=== PATIENT | female | born 1935 | race Caucasian/White ===

== ENCOUNTER 2019-03-19 18:10 | Observation (INO) ==
[2019-03-19] MEDS ORDERED: 0.9 % Sodium Chloride 500 ML IVC ONE (18:12)
[2019-03-19] MEDS ORDERED: Ondansetron 4 MG/2 ML VIAL IVP ONE (18:12)
[2019-03-19] MEDS ORDERED: Aspirin 81 MG TAB.CHEW PO ONE (18:12)
[2019-03-19 18:50] LABS: Hematocrit 46.4 % (35.3-44.9); Hemoglobin 16.2 g/dL (11.5-15.4); Mean Corpuscular HGB Conc 34.9 g/dL (31.6-35.5); Mean Corpuscular Hemoglobin 31.5 pg (28.0-33.3); Mean Corpuscular Volume 90.3 fL (83.0-100.0); Mean Platelet Volume 10.5 fL (9.4-12.4); Platelet Count 241 K/mcL (140-400); Red Blood Count 5.14 M/mcL (3.82-4.97); Red Cell Distribution Width 12.3 % (11.5-14.5); Segmented Neutrophils % 75.1 %; White Blood Count 8.3 K/mcL (4.3-11.1)
[2019-03-19 18:51] LABS: Basophils % 0.5 %; Eosinophils # 0.1 K/mcL (0.0-0.6); Eosinophils % 0.7 %; Immature Granulocytes % 1.2 % (0-4); Lymphocytes # 1.2 K/mcL (0.6-4.6); Monocytes # 0.7 K/mcL (0.0-1.3); Monocytes % 8.5 %; Neutrophils # 6.2 K/mcL (1.6-8.9)
[2019-03-19 18:59] LABS: Prothrombin Time 10.9 Seconds (9.4-12.1)
[2019-03-19 19:31] LABS: BUN/Creatinine Ratio 16 (6-26); Blood Urea Nitrogen 15 mg/dL (8-23); Calcium 9.9 mg/dL (8.6-10.3); Carbon Dioxide 24 mEq/L (23-29); Chloride 104 mEq/L (98-107); Glucose 158 mg/dL (70-105); Osmolality,Calculated 290 (280-300); Potassium 3.9 mEq/L (3.5-5.1); Sodium 138 mEq/L (136-145); Troponin I < 0.03 ng/mL (< 0.04); eGFR For African Americans > 60 (> 60); eGFR For Non-African Americans 56 (> 60)
[2019-03-19] MEDS ORDERED: *HR* Metoprolol 5 MG/5 ML VIAL IVP ONE (19:42)
[2019-03-20] MEDS ORDERED: Naloxone 0.4 MG/ML INJ IVP PRN (02:01)
[2019-03-20] MEDS ORDERED: Ondansetron 4 MG/2 ML VIAL IVP PRN (02:01)
[2019-03-20] MEDS ORDERED: Acetaminophen 325 MG TABLET PO PRN (02:01)
[2019-03-20] MEDS ORDERED: traMADol 50 MG TABLET PO PRN (02:01)
[2019-03-20] MEDS ORDERED: *HR* OxyCODONE Immed Rel 5 MG TABLET PO PRN (02:01)
[2019-03-20] MEDS ORDERED: Aspirin Enteric Coated 325 MG Tablet PO ONE (04:30)
[2019-03-20] MEDS ORDERED: Nitroglycerin 0.4 MG TAB.SUBL SL PRN (04:31)
[2019-03-20] MEDS ORDERED: Regadenoson 0.4 MG/5 ML SYRINGE IVP ONE (06:18)
[2019-03-20] MEDS: *HR* Heparin 5,000 UNIT/ML VIAL SQ SCH ×3 (06:35→20:03)
[2019-03-20 09:40] LABS: Hematocrit 43.5 % (35.3-44.9); Mean Corpuscular HGB Conc 33.3 g/dL (31.6-35.5); Mean Corpuscular Hemoglobin 31.3 pg (28.0-33.3); Mean Corpuscular Volume 93.8 fL (83.0-100.0); Mean Platelet Volume 10.4 fL (9.4-12.4); Platelet Count 220 K/mcL (140-400); Red Blood Count 4.64 M/mcL (3.82-4.97); Red Cell Distribution Width 12.2 % (11.5-14.5); White Blood Count 7.2 K/mcL (4.3-11.1)
[2019-03-20 09:42] LABS: Hemoglobin 14.5 g/dL (11.5-15.4)
[2019-03-20 11:17] LABS: BUN/Creatinine Ratio 14 (6-26); Blood Urea Nitrogen 14 mg/dL (8-23); Calcium 9.4 mg/dL (8.6-10.3); Carbon Dioxide 21 mEq/L (23-29); Chloride 108 mEq/L (98-107); Chol/HDL Ratio 7.3 (0-4.9); Cholesterol 241 mg/dL (< 200); Glucose 169 mg/dL (70-105); HDL Cholesterol 33 mg/dL (40-59); LDL Cholesterol,Calculated 165 mg/dL (0-99); Magnesium 1.9 mg/dL (1.6-2.6); Osmolality,Calculated 290 (280-300); Potassium 3.7 mEq/L (3.5-5.1); Sodium 138 mEq/L (136-145); Triglycerides 217 mg/dL (< 150); eGFR For African Americans > 60 (> 60); eGFR For Non-African Americans 53 (> 60)
[2019-03-20] MEDS ORDERED: amLODIPine 5 MG TABLET PO ONE (11:30)
[2019-03-20 11:34] LABS: Estimated Average Glucose 154 mg/dl
[2019-03-20] MEDS: ALPRAZolam 1 MG TABLET PO SCH ×2 (15:00→20:03)
[2019-03-21] MEDS: *HR* Heparin 5,000 UNIT/ML VIAL SQ SCH (05:25)
[2019-03-21 05:39] LABS: Hematocrit 43.9 % (35.3-44.9); Hemoglobin 15.2 g/dL (11.5-15.4); Mean Corpuscular HGB Conc 34.6 g/dL (31.6-35.5); Mean Corpuscular Hemoglobin 31.5 pg (28.0-33.3); Mean Corpuscular Volume 90.9 fL (83.0-100.0); Mean Platelet Volume 10.7 fL (9.4-12.4); Platelet Count 241 K/mcL (140-400); Red Blood Count 4.83 M/mcL (3.82-4.97); Red Cell Distribution Width 12.5 % (11.5-14.5)
[2019-03-21 06:02] LABS: Calcium 9.9 mg/dL (8.6-10.3); Potassium 3.6 mEq/L (3.5-5.1)
[2019-03-21 07:17] LABS: Adenovirus Not Detected (Not Detect); Bordetella Pertussis Not Detected (Not Detect); Chlamydophila pneumoniae Not Detected (Not Detect); Coronavirus 229E Not Detected (Not Detect); Coronavirus HKU1 Not Detected (Not Detect); Coronavirus NL63 Not Detected (Not Detect); Coronavirus OC43 Not Detected (Not Detect); Human Metapneumovirus Not Detected (Not Detect); Human Rhinovirus/Enterovirus Not Detected (Not Detect); Influenza A Subtype 2009 H1 Not Detected (Not Detect); Influenza A Untypeable Not Detected (Not Detect); Influenza B Not Detected (Not Detect); Mycoplasma pneumoniae Not Detected (Not Detect); Parainfluenza Virus 1 Not Detected (Not Detect); Parainfluenza Virus 2 Not Detected (Not Detect); Parainfluenza Virus 3 Not Detected (Not Detect); Parainfluenza Virus 4 Not Detected (Not Detect); Respiratory Syncytial Virus Not Detected (Not Detect)
[2019-03-21] MEDS ORDERED: ARIPiprazole 5 MG TABLET PO SCH (09:00)
[2019-03-21] MEDS ORDERED: Aspirin Enteric Coated 81 MG Tablet PO SCH (09:00)
[2019-03-21] MEDS: ALPRAZolam 1 MG TABLET PO SCH (09:05)
[2019-03-21] MEDS ORDERED: amLODIPine 5 MG TABLET PO ONE (09:31)
[2019-03-21] MEDS ORDERED: amLODIPine 5 MG TABLET PO SCH (09:35)
[2019-03-21 11:56] VITALS: BP 124/74
[2019-03-22] MEDS ORDERED: amLODIPine 5 MG TABLET PO SCH (09:00)
== END 2019-03-21 14:58 | disposition home or self-care (01) ==
LOC: EMEROOARM 18:10 → 3BNU 18:10 → SUATTDRO 20:34 → 3BNU 21:15
PROVIDERS: ADMIT Internal Medicine; ATTEND Internal Medicine

== ENCOUNTER 2019-08-11 13:28 | Observation (INO) ==
[2019-08-11] MEDS ORDERED: 0.9 % Sodium Chloride 500 ML IVC STA (13:57)
[2019-08-11] MEDS ORDERED: *HR* HYDROmorphone (PF) 1 MG/ML SYRINGE IVP ONE ×2 (13:57→16:42)
[2019-08-11] MEDS ORDERED: Ondansetron 4 MG/2 ML VIAL IVP STA (13:58)
[2019-08-11 14:10] LABS: Hematocrit 48.8 % (35.3-44.9); Hemoglobin 16.3 g/dL (11.5-15.4); Mean Corpuscular HGB Conc 33.4 g/dL (31.6-35.5); Mean Corpuscular Hemoglobin 30.6 pg (28.0-33.3); Mean Corpuscular Volume 91.6 fL (83.0-100.0); Mean Platelet Volume 10.3 fL (9.4-12.4); Platelet Count 262 K/mcL (140-400); Red Blood Count 5.33 M/mcL (3.82-4.97); Red Cell Distribution Width 12.8 % (11.5-14.5); White Blood Count 8.1 K/mcL (4.3-11.1)
[2019-08-11 14:27] LABS: Prothrombin Time 10.8 Seconds (9.4-12.1)
[2019-08-11 14:29] LABS: Albumin/Globulin Ratio 1.7 (1.1-2.2); Bilirubin,Total 0.5 mg/dL (0.3-1.0); Calcium 10.4 mg/dL (8.6-10.3)
[2019-08-11 14:30] LABS: Activated Partial Thrombo Time 32.9 Seconds (26.0-36.0)
[2019-08-11 15:30] LABS: Bilirubin,Urine Negative (Negative); Blood,Urine Negative (Negative); Clarity,Urine Clear (Clear); Color,Urine Yellow (Yellow); Glucose,Urine (UA) Normal (Normal); Ketones,Urine Negative (Negative); Leukocyte Esterase,Urine Trace (Negative); Nitrite,Urine Negative (Negative); Protein,Urine Negative (Neg-Trace); Specific Gravity,Urine 1.012 (1.010-1.025); Urobilinogen,Urine Normal (Normal)
[2019-08-11 15:32] LABS: Bacteria,Urine None Seen per hpf (None-Few); Hyaline Casts,Urine None Seen per lpf (None-Few); RBC,Urine 0-3 per hpf (0-3); Squamous Epithelial Cell,Urine Few per lpf (None-Few); WBC,Urine 0-3 per hpf (0-3)
[2019-08-11] MEDS ORDERED: Ondansetron 4 MG/2 ML VIAL IVP PRN (17:34)
[2019-08-11] MEDS ORDERED: *HR* Promethazine 25 MG/ML VIAL IVP PRN (17:34)
[2019-08-11] MEDS ORDERED: Naloxone 0.4 MG/ML INJ IVP PRN (17:34)
[2019-08-11] MEDS ORDERED: Dextrose Gel 15 GM/37.5 ML TUBE PO PRN ×2 (17:53)
[2019-08-11] MEDS ORDERED: *HR* Dextrose 50 % in Water (Syg) 50 ML SYRINGE IVP PRN (17:53)
[2019-08-11] MEDS ORDERED: D5% in Water 1,000 ML IVC PRN (17:53)
[2019-08-11] MEDS: 0.9 % Sodium Chloride 1,000 ML IVC SCH (20:13)
[2019-08-11] MEDS ORDERED: Insulin LISPRO 300 UNITS/3 ML VIAL SQ SCH (21:00)
[2019-08-12] MEDS: Ketorolac 15 MG/ML VIAL IVP PRN ×2 (00:18→07:51)
[2019-08-12 04:14] LABS: Prothrombin Time 11.9 Seconds (9.4-12.1)
[2019-08-12 04:15] LABS: Hematocrit 43.8 % (35.3-44.9); Mean Corpuscular HGB Conc 32.6 g/dL (31.6-35.5); Mean Corpuscular Hemoglobin 29.9 pg (28.0-33.3); Mean Corpuscular Volume 91.6 fL (83.0-100.0); Mean Platelet Volume 10.3 fL (9.4-12.4); Platelet Count 252 K/mcL (140-400); Red Blood Count 4.78 M/mcL (3.82-4.97); Red Cell Distribution Width 12.8 % (11.5-14.5); White Blood Count 8.9 K/mcL (4.3-11.1)
[2019-08-12 04:16] LABS: Activated Partial Thrombo Time 33.2 Seconds (26.0-36.0); Hemoglobin 14.3 g/dL (11.5-15.4)
[2019-08-12 04:24] LABS: BUN/Creatinine Ratio 11 (6-26); Blood Urea Nitrogen 11 mg/dL (8-23); Calcium 9.7 mg/dL (8.6-10.3); Carbon Dioxide 27 mEq/L (23-29); Chloride 108 mEq/L (98-107); Glucose 101 mg/dL (70-105); Osmolality,Calculated 290 (280-300); Potassium 4.1 mEq/L (3.5-5.1); Sodium 140 mEq/L (136-145); eGFR For African Americans > 60 (> 60); eGFR For Non-African Americans 52 (> 60)
[2019-08-12] MEDS: 0.9 % Sodium Chloride 1,000 ML IVC SCH (07:49)
[2019-08-12] MEDS: Insulin LISPRO 300 UNITS/3 ML VIAL SQ SCH ×2 (07:52→11:26)
[2019-08-12] MEDS ORDERED: lisinopriL 10 MG TABLET PO SCH (09:00)
[2019-08-12] MEDS ORDERED: *HR* Propofol 200 MG/20 ML VIAL IVP ONE (10:55)
[2019-08-12] MEDS ORDERED: *HR* FentaNYL (PF) 100 MCG/2 ML VIAL ONE (10:55)
[2019-08-12] MEDS ORDERED: Ondansetron 4 MG/2 ML VIAL ONE (10:56)
[2019-08-12] MEDS ORDERED: Lidocaine -MPF 2% 2 ML VIAL ONE (10:56)
[2019-08-12] MEDS ORDERED: Glycopyrrolate 0.2 MG/ML VIAL ONE (11:26)
[2019-08-12] MEDS ORDERED: Ketamine *HR* 500 MG/10 ML MDV ONE (11:26)
[2019-08-12] MEDS ORDERED: *HR* Midazolam HCl 5 MG/5 ML VIAL IVP ONE (11:34)
[2019-08-12] MEDS ORDERED: 0.9 % Sodium Chloride 1,000 ML IVC SCH (12:59)
[2019-08-12] MEDS ORDERED: *HR* Promethazine 25 MG/ML VIAL IVP PRN (12:59)
[2019-08-12] MEDS ORDERED: Ondansetron 4 MG/2 ML VIAL IVP PRN (12:59)
[2019-08-12] MEDS ORDERED: *HR* Dextrose 50 % in Water (Syg) 50 ML SYRINGE IVP PRN (12:59)
[2019-08-12] MEDS ORDERED: D5% in Water 1,000 ML IVC PRN (12:59)
[2019-08-12] MEDS ORDERED: Dextrose Gel 15 GM/37.5 ML TUBE PO PRN ×2 (12:59)
[2019-08-12] MEDS ORDERED: Naloxone 0.4 MG/ML INJ IVP PRN (12:59)
[2019-08-12 15:21] VITALS: BP 164/76
[2019-08-12] MEDS ORDERED: Insulin LISPRO 300 UNITS/3 ML VIAL SQ SCH ×2 (16:30→21:00)
[2019-08-13] MEDS ORDERED: lisinopriL 10 MG TABLET PO SCH (09:00)
== END 2019-08-12 15:50 | disposition home or self-care (01) ==
LOC: 3ANU 13:28 → EMEROOARM 13:28 → SUATTDRO 16:54 → 3ANU 18:11
PROVIDERS: ADMIT Family Medicine; ATTEND Family Medicine